=== PATIENT | female | born 1995 | race Caucasian/White ===

== ENCOUNTER 2020-09-04 19:16 | Emergency (ER) | payer OTHER ==
[~2020-09-04] VITALS: Ht 170.2 cm; Wt 75.0 kg
[2020-09-04] MEDS ORDERED: CEPH500C PO (20:04)
[2020-09-04] MEDS ORDERED: CEPHALEXIN 500 MG CAP PO ONE (20:25)
[2020-09-04 20:34] VITALS: BP 116/72
== END 2020-09-04 20:34 | disposition home or self-care (01) ==
LOC: M ED 19:16
DX: S40.862A Insect bite (nonvenomous) of left upper arm, initial encounter (principal); S80.262A Insect bite (nonvenomous), left knee, initial encounter; W57.XXXA Bitten or stung by nonvenomous insect and other nonvenomous arthropods, initial encounter; Y92.9 Unspecified place or not applicable; Y93.9 Activity, unspecified; Y99.9 Unspecified external cause status